=== PATIENT | female | born 1980 | race Caucasian/White ===

== ENCOUNTER 2018-02-09 13:17 | Emergency (ER) | payer OTHER, SELFPAY ==
[2018-02-09 13:22] VITALS: BP 115/78; PULSE 94; RESP 16; TEMP 36.9; O2SAT 98; BMI 27.4
--- NOTE | 2018-02-09 14:43 | ED.HA ---
HPI - Headache <[facility] - Last Filed: 02/09/18 16:52> General Chief Complaint: Headache Stated Complaint: 6 days migrane Time Seen by Provider: 02/09/18 14:45 Source: patient and family Mode of arrival: ambulatory Limitations: no limitations History of Present Illness HPI Narrative: Patient presents with chief complaint of migraine. She states this is been going on for 6 days. She has tried Imitrex, narcotics, and other medications at home. She complaints of phonophobia as well as photophobia. She denies any fevers a complains of nausea and vomiting. She denies diarrhea. She denies abdominal pain, shortness of breath, chest pain. She had states her vision is normal. She denies a thunderclap sensation. She states this is not the worst headache of her life. Related Data Home Medications Medication Instructions Recorded Confirmed No Known Home Medications 02/09/18 02/09/18 Allergies Allergy/AdvReac Type Severity Reaction Status Date / Time banana [BANANA] Allergy Severe HIVES AND Verified 02/09/18 15:18 SWOLLEN THROAT latex [LATEX] Allergy Unknown Verified 02/09/18 15:18 Sulfa (Sulfonamide Allergy Unknown Verified 02/09/18 15:18 Antibiotics) [SULFA (SULFONAMIDE ANTIBIOTICS)] Review of Systems [facility] Last Filed: 02/09/18 16:52> Review of Systems GENERAL: Denies chills, fatigue, malaise, fever, sweats. HEENT: Denies sinus pain, ear pain, sore throat, difficulty swallowing, dizziness. RESPIRATORY: Denies dyspnea, cough, wheezing, hemoptysis, sputum. CARDIOVASCULAR: Denies chest pain, palpitations, orthopnea, edema, GASTROINTESTINAL: Denies nausea, vomiting, abdominal pain, diarrhea, constipation, melena. : Denies dysuria, frequency, incontinence, hematuria, urinary retention. MUSCULOSKELETAL: denies weakness, joint pain, or bony pain SKIN: Denies rash, skin lesions, or other NEUROLOGIC: See HPI PSYCHIATRIC: No concerning psychosocial issues. 12 point review of systems is negative except for those stated above Exam <[facility] - Last Filed: 02/09/18 16:52> Narrative Exam Narrative: GENERAL: This is a well-nourished, well-developed patient, lying on stretcher in a dark room. HEAD: Atraumatic. Normocephalic. No temporal or scalp tenderness. EYES: Pupils equal round and reactive. Extraocular motions intact. No scleral icterus. No injection or drainage. No nystagmus noted. ENT: Nose without bleeding, purulent drainage or septal hematoma. Throat without erythema, tonsillar hypertrophy or exudate. Uvula midline. Airway patent. NECK: Trachea midline. No JVD or lymphadenopathy. Supple, nontender, no meningeal signs. CARDIOVASCULAR: Regular rate and rhythm without murmurs, gallops, or rubs. RESPIRATORY: Clear to auscultation. Breath sounds equal bilaterally. No wheezes, rales, or rhonchi. GASTROINTESTINAL: Abdomen soft, non-tender, nondistended. No hepato-splenomegaly, or palpable masses. No guarding. EXTREMITIES: No clubbing, cyanosis, or edema. No joint tenderness, effusion, or edema noted. BACK: Nontender without deformity or crepitance. No flank tenderness. NEURO: AOx3. Using upper and lower extremities equally bilaterally. Strength is equal bilateral upper and lower extremities. Radialis and Achilles reflexes intact bilaterally. Clear speech. SKIN: No rash or erythema. Initial Vital Signs Initial Vital Signs: Vital Signs Temperature 98.5 F 02/09/18 13:22 Pulse Rate 94 H 02/09/18 13:22 Respiratory Rate 16 02/09/18 13:22 Blood Pressure 115/78 02/09/18 13:22 Pulse Oximetry 98 02/09/18 13:22 <Red Thakkar DO - Last Filed: 02/09/18 19:50> Initial Vital Signs Initial Vital Signs: Vital Signs Temperature 98.5 F 02/09/18 13:22 Pulse Rate 94 H 02/09/18 13:22 Respiratory Rate 16 02/09/18 13:22 Blood Pressure 115/78 02/09/18 13:22 Pulse Oximetry 98 02/09/18 13:22 Course <IRVIN Dee - Last Filed: 02/09/18 16:52> Orders Ordered: Discontinued Medications Diphenhydramine HCl (Benadryl) 50 mg IV NOW ONE Stop: 02/09/18 14:55 Last Admin: 02/09/18 15:18 Dose: 50 mg Sodium Chloride (Normal Saline 0.9%) 1,000 mls @ 1,000 mls/hr IV BOLUS ONE Stop: 02/09/18 15:53 Last Infusion: 02/09/18 16:37 Dose: 0 mls/hr Admin: 02/09/18 15:18 Dose: 1,000 mls/hr Ketorolac Tromethamine (Toradol) 30 mg IV NOW ONE Stop: 02/09/18 14:55 Last Admin: 02/09/18 15:19 Dose: 30 mg Metoclopramide HCl (Reglan) 10 mg IV NOW ONE Stop: 02/09/18 14:55 Last Admin: 02/09/18 15:18 Dose: 10 mg Reevaluation(s) Reevaluation #1: Patient states that her pain is gone. Requesting to go home. Time: 16:00 Vital Signs - 8 hr 02/09/18 13:22 02/09/18 15:25 02/09/18 16:30 Temperature 98.5 F Pulse Rate 94 H 83 85 Respiratory Rate 16 16 18 Blood Pressure 115/78 Blood Pressure [Left Arm] 113/75 100/73 Pulse Oximetry 98 98 98 <Red Thakkar, - Last Filed: 02/09/18 19:50> Orders Ordered: Discontinued Medications Diphenhydramine HCl (Benadryl) 50 mg IV NOW ONE Stop: 02/09/18 14:55 Last Admin: 02/09/18 15:18 Dose: 50 mg Sodium Chloride (Normal Saline 0.9%) 1,000 mls @ 1,000 mls/hr IV BOLUS ONE Stop: 02/09/18 15:53 Last Infusion: 02/09/18 16:37 Dose: 0 mls/hr Admin: 02/09/18 15:18 Dose: 1,000 mls/hr Ketorolac Tromethamine (Toradol) 30 mg IV NOW ONE Stop: 02/09/18 14:55 Last Admin: 02/09/18 15:19 Dose: 30 mg Metoclopramide HCl (Reglan) 10 mg IV NOW ONE Stop: 02/09/18 14:55 Last Admin: 02/09/18 15:18 Dose: 10 mg Vital Signs - 8 hr 02/09/18 13:22 02/09/18 15:25 02/09/18 16:30 Temperature 98.5 F Pulse Rate 94 H 83 85 Respiratory Rate 16 16 18 Blood Pressure 115/78 Blood Pressure [Left Arm] 113/75 100/73 Pulse Oximetry 98 98 98 MDM - Headache <Lisa CowartCATHLEEN- - Last Filed: 02/09/18 16:52> Differential Diagnosis Differential diagnosis: Likely migraine, tension headache and headache MDM Narrative Medical decision making narrative: Patient presents with chief complaint of headache. She states this is consistent with her previous migraines. She denies neurological changes. She did not have a thunderclap sensation her vital signs are within normal limits. Thus we discussed a CT but elected to not do one at this point time. Patient was treated with headache cocktail emergency department great success. Patient had no questions or concerns upon discharge. I discussed going home and resting. Discussed return precautions the emergency department including neurological changes, any acute concerns. Discussed follow-up with primary care provider. Discharge Plan Departure Patient Disposition: Home Clinical Impression: Migraine Discharge Date/Time: 02/09/18 16:43 Interventions: ED Discharge Assessment Last Done: 02/09/18 16:42 Instructions: Migraine -- Adult, DI for Migraine Activity Restrictions/Additional Instructions: Please go home and rest. Follow up with primary care provider about Your migraines. come back to the emergency department if needed. Please do not take any NSAIDs for 6-8 hours after your Toradol injection in the emergency department. Prescriptions: No Action No Known Home Medications RF: 0 Referrals: Stefano Davis MD [Primary Care Provider] - Stand Alone Forms: Work/School Restrictions <Red Thakkar DO - Last Filed: 02/09/18 19:50> Cosign ED Attending Berthaature Attestation: I was immediately available in the department for consultation. Documentation has been reviewed. I agree with assessment and plan.
[2018-02-09] MEDS: METOCLOPRAMIDE 10 MG/2 ML INJ IV (15:18)
[2018-02-09] MEDS: SODIUM CHLORIDE 0.9% 1,000 ML 1000 ML IV (15:18)
[2018-02-09] MEDS: diphenhydrAMINE 50 MG/ML VIAL IV (15:18)
[2018-02-09] MEDS: KETOROLAC 60 MG/2 ML VIAL 30 MG IV (15:19)
[2018-02-09 15:25] VITALS: BP 113/75; PULSE 83; RESP 16; O2SAT 98
[2018-02-09 16:30] VITALS: BP 100/73; PULSE 85; RESP 18; O2SAT 98
--- NOTE | 2018-02-09 16:36 | ED_ITS ---
HPI - Headache <[facility] - Last Filed: 02/09/18 16:52> General Chief Complaint: Headache Stated Complaint: 6 days migrane Time Seen by Provider: 02/09/18 14:45 Source: patient and family Mode of arrival: ambulatory Limitations: no limitations History of Present Illness HPI Narrative: Patient presents with chief complaint of migraine. She states this is been going on for 6 days. She has tried Imitrex, narcotics, and other medications at home. She complaints of phonophobia as well as photophobia. She denies any fevers a complains of nausea and vomiting. She denies diarrhea. She denies abdominal pain, shortness of breath, chest pain. She had states her vision is normal. She denies a thunderclap sensation. She states this is not the worst headache of her life. Related Data Home Medications Medication Instructions Recorded Confirmed No Known Home Medications 02/09/18 02/09/18 Allergies Allergy/AdvReac Type Severity Reaction Status Date / Time banana [BANANA] Allergy Severe HIVES AND Verified 02/09/18 15:18 SWOLLEN THROAT latex [LATEX] Allergy Unknown Verified 02/09/18 15:18 Sulfa (Sulfonamide Allergy Unknown Verified 02/09/18 15:18 Antibiotics) [SULFA (SULFONAMIDE ANTIBIOTICS)] [facility] Systems [facility] Last Filed: 02/09/18 16:52> Review of Systems GENERAL: Denies chills, fatigue, malaise, fever, sweats. HEENT: Denies sinus pain, ear pain, sore throat, difficulty swallowing, dizziness. RESPIRATORY: Denies dyspnea, cough, wheezing, hemoptysis, sputum. CARDIOVASCULAR: Denies chest pain, palpitations, orthopnea, edema, GASTROINTESTINAL: Denies nausea, vomiting, abdominal pain, diarrhea, constipation, melena. : Denies dysuria, frequency, incontinence, hematuria, urinary retention. MUSCULOSKELETAL: denies weakness, joint pain, or bony pain SKIN: Denies rash, skin lesions, or other NEUROLOGIC: See HPI PSYCHIATRIC: No concerning psychosocial issues. 12 point review of systems is negative except for those stated above Exam <[facility] Last Filed: 02/09/18 16:52> Narrative Exam Narrative: GENERAL: This is a well-nourished, well-developed patient, lying on stretcher in a dark room. HEAD: Atraumatic. Normocephalic. No temporal or scalp tenderness. EYES: Pupils equal round and reactive. Extraocular motions intact. No scleral icterus. No injection or drainage. No nystagmus noted. ENT: Nose without bleeding, purulent drainage or septal hematoma. Throat without erythema, tonsillar hypertrophy or exudate. Uvula midline. Airway patent. NECK: Trachea midline. No JVD or lymphadenopathy. Supple, nontender, no meningeal signs. CARDIOVASCULAR: Regular rate and rhythm without murmurs, gallops, or rubs. RESPIRATORY: Clear to auscultation. Breath sounds equal bilaterally. No wheezes , rales, or rhonchi. GASTROINTESTINAL: Abdomen soft, non-tender, nondistended. No hepato-splenomegaly , or palpable masses. No guarding. EXTREMITIES: No clubbing, cyanosis, or edema. No joint tenderness, effusion, or edema noted. BACK: Nontender without deformity or crepitance. No flank tenderness. NEURO: AOx3. Using upper and lower extremities equally bilaterally. Strength is equal bilateral upper and lower extremities. Radialis and Achilles reflexes intact bilaterally. Clear speech. SKIN: No rash or erythema. Initial Vital Signs Initial Vital Signs: Vital Signs Temperature 98.5 F 02/09/18 13:22 Pulse Rate 94 H 02/09/18 13:22 Respiratory Rate 16 02/09/18 13:22 Blood Pressure 115/78 02/09/18 13:22 Pulse Oximetry 98 02/09/18 13:22 <Red Thakkar DO - Last Filed: 02/09/18 19:50> Initial Vital Signs Initial Vital Signs: Vital Signs Temperature 98.5 F 02/09/18 13:22 Pulse Rate 94 H 02/09/18 13:22 Respiratory Rate 16 02/09/18 13:22 Blood Pressure 115/78 02/09/18 13:22 Pulse Oximetry 98 02/09/18 13:22 Course <IRVIN Dee - Last Filed: 02/09/18 16:52> Orders Ordered: Discontinued Medications Diphenhydramine HCl (Benadryl) 50 mg IV NOW ONE Stop: 02/09/18 14:55 Last Admin: 02/09/18 15:18 Dose: 50 mg Sodium Chloride (Normal Saline 0.9%) 1,000 mls @ 1,000 mls/hr IV BOLUS ONE Stop: 02/09/18 15:53 Last Infusion: 02/09/18 16:37 Dose: 0 mls/hr Admin: 02/09/18 15:18 Dose: 1,000 mls/hr Ketorolac Tromethamine (Toradol) 30 mg IV NOW ONE Stop: 02/09/18 14:55 Last Admin: 02/09/18 15:19 Dose: 30 mg Metoclopramide HCl (Reglan) 10 mg IV NOW ONE Stop: 02/09/18 14:55 Last Admin: 02/09/18 15:18 Dose: 10 mg Reevaluation(s) Reevaluation #1: Patient states that her pain is gone. Requesting to go home. Time: 16:00 Vital Signs - 8 hr 02/09/18 13:22 02/09/18 15:25 02/09/18 16:30 Temperature 98.5 F Pulse Rate 94 H 83 85 Respiratory Rate 16 16 18 Blood Pressure 115/78 Blood Pressure [Left Arm] 113/75 100/73 Pulse Oximetry 98 98 98 <Red Thakkar, - Last Filed: 02/09/18 19:50> Orders Ordered: Discontinued Medications Diphenhydramine HCl (Benadryl) 50 mg IV NOW ONE Stop: 02/09/18 14:55 Last Admin: 02/09/18 15:18 Dose: 50 mg Sodium Chloride (Normal Saline 0.9%) 1,000 mls @ 1,000 mls/hr IV BOLUS ONE Stop: 02/09/18 15:53 Last Infusion: 02/09/18 16:37 Dose: 0 mls/hr Admin: 02/09/18 15:18 Dose: 1,000 mls/hr Ketorolac Tromethamine (Toradol) 30 mg IV NOW ONE Stop: 02/09/18 14:55 Last Admin: 02/09/18 15:19 Dose: 30 mg Metoclopramide HCl (Reglan) 10 mg IV NOW ONE Stop: 02/09/18 14:55 Last Admin: 02/09/18 15:18 Dose: 10 mg Vital Signs - 8 hr 02/09/18 13:22 02/09/18 15:25 02/09/18 16:30 Temperature 98.5 F Pulse Rate 94 H 83 85 Respiratory Rate 16 16 18 Blood Pressure 115/78 Blood Pressure [Left Arm] 113/75 100/73 Pulse Oximetry 98 98 98 MDM - Headache <Lisa CowartCATHLEEN- - Last Filed: 02/09/18 16:52> Differential Diagnosis Differential diagnosis: Likely migraine, tension headache and headache MDM Narrative Medical decision making narrative: Patient presents with chief complaint of headache. She states this is consistent with her previous migraines. She denies neurological changes. She did not have a thunderclap sensation her vital signs are within normal limits. Thus we discussed a CT but elected to not do one at this point time. Patient was treated with headache cocktail emergency department great success. Patient had no questions or concerns upon discharge. I discussed going home and resting. Discussed return precautions the emergency department including neurological changes, any acute concerns. Discussed follow-up with primary care provider. Discharge Plan Departure Patient Disposition: Home Clinical Impression: Migraine Discharge Date/Time: 02/09/18 16:43 Interventions: ED Discharge Assessment Last Done: 02/09/18 16:42 Instructions: Migraine -- Adult, DI for Migraine Activity Restrictions/Additional Instructions: Please go home and rest. Follow up with primary care provider about Your migraines. come back to the emergency department if needed. Please do not take any NSAIDs for 6-8 hours after your Toradol injection in the emergency department. Prescriptions: No Action No Known Home Medications RF: 0 Referrals: Stefano Davis MD [Primary Care Provider] - Stand Alone Forms: Work/School Restrictions <Red Thakkar DO - Last Filed: 02/09/18 19:50> Cosign ED Attending Berthaature Attestation: I was immediately available in the department for consultation. Documentation has been reviewed. I agree with assessment and plan.
== END 2018-02-09 16:43 | disposition home or self-care (01) ==
PROVIDERS: Emergency Provider Nurse Practitioner Family; Family Provider Family Medicine; PCP Family Medicine
DX: G43.909 Migraine, unspecified, not intractable, without status migrainosus (principal)
CPT/HCPCS: 96361; 96374; 96375; 99283; 99284; J1200; J1885; J2765

== ENCOUNTER → 2019-10-08 10:50 | Outpatient (CLI) | payer OTHER, SELFPAY ==
[2019-10-08 12:18] LABS: Vitamin D 25 Hydroxy (D3) 42.4 ng/mL (30.0-100.0)
== END ==
PROVIDERS: Family Provider Family Medicine; PCP Family Medicine; Referring Provider Nurse Practitioner; Visit Provider Nurse Practitioner
DX: R53.83 Other fatigue (principal)
CPT/HCPCS: 36415; 82306

== ENCOUNTER → 2020-01-04 10:57 | Outpatient (CLI) | payer OTHER, SELFPAY ==
[2020-01-04 14:04] LABS: Cholesterol 207 mg/dL (140-199); HDL Cholesterol 68 mg/dL (40-60); LDL Cholesterol Calculated 111 mg/dL (<100); Triglycerides 139 mg/dL (35-150)
== END ==
PROVIDERS: Internal Medicine Cardiovascular Disease; Family Provider Family Medicine; PCP Student in an Organized Health Care Education/Training Program; Referring Provider Internal Medicine Cardiovascular Disease; Visit Provider Internal Medicine Cardiovascular Disease
DX: E78.5 Hyperlipidemia, unspecified (principal)
CPT/HCPCS: 36415; 80061

== ENCOUNTER → 2021-01-05 09:15 | Outpatient (CLI) | payer OTHER, SELFPAY ==
[2021-01-05 11:22] LABS: COVID19 -Nasal RAPID Negative (Negative)
== END ==
PROVIDERS: PCP Student in an Organized Health Care Education/Training Program; Visit Provider Physician Assistant
DX: Z20.822 Contact with and (suspected) exposure to COVID-19 (principal); R51.9 Headache, unspecified; J02.9 Acute pharyngitis, unspecified; R52 Pain, unspecified
CPT/HCPCS: 87635

== ENCOUNTER → 2021-01-23 10:32 | Outpatient (CLI) | payer OTHER, SELFPAY ==
--- NOTE | 2021-01-23 | DI.MG.S_ITS ---
BILATERAL DIGITAL SCREENING MAMMOGRAM 3D/2D WITH CAD: 01/23/2021 CLINICAL: Routine screening. Comparison is made to exams dated: 05/18/2017 ultrasound and 05/18/2017 mammogram - [facility]. The tissue of both breasts is heterogeneously dense. This may lower the sensitivity of mammography. Current study was also evaluated with a Computer Aided Detection (CAD) system. There is an oval high density asymmetry with an indistinct margin in the left breast posterior depth superior region seen on the mediolateral oblique view only. No other significant masses, calcifications, or other findings are seen in either breast. IMPRESSION: INCOMPLETE: NEEDS ADDITIONAL IMAGING EVALUATION The oval high density asymmetry in the left breast is indeterminate. Mediolateral and spot compression views as well as additional views with possible ultrasound are recommended. This exam was interpreted at Station ID: [id number]. NOTE: For mammograms, a report in lay terms will be sent to the patient. Approximately 15% of breast malignancies will not be visualized mammographically. In the management of a palpable breast mass, a negative mammogram must not discourage biopsy of a clinically suspicious lesion. Electronically Signed By: Mckinley jay/rosie:01/25/2021 07:31:46 letter sent: Additional Imaging Needed ACR BI-RADS Category 0: Incomplete 3340F
== END ==
PROVIDERS: PCP Student in an Organized Health Care Education/Training Program; Referring Provider Student in an Organized Health Care Education/Training Program; Visit Provider Student in an Organized Health Care Education/Training Program
DX: Z12.31 Encounter for screening mammogram for malignant neoplasm of breast (principal); N64.89 Other specified disorders of breast
CPT/HCPCS: 77063; 77067

== ENCOUNTER → 2021-03-04 08:35 | Outpatient (CLI) | payer BC, SELFPAY | PROVIDERS: PCP Student in an Organized Health Care Education/Training Program; Referring Provider Student in an Organized Health Care Education/Training Program; Visit Provider Student in an Organized Health Care Education/Training Program | DX: R92.8 Other abnormal and inconclusive findings on diagnostic imaging of breast (principal); Z53.8 Procedure and treatment not carried out for other reasons ==

== ENCOUNTER 2022-09-25 22:11 | Emergency (ER) | payer BC, SELFPAY ==
[2022-09-25 22:21] VITALS: O2SAT 98
[2022-09-25 22:22] VITALS: BP 111/59; PULSE 99; O2SAT 96
[2022-09-25 22:23] VITALS: BP 111/59; PULSE 94; RESP 18; TEMP 36.9; O2SAT 97; BMI 25.9
[2022-09-25 22:30] VITALS: BP 103/60; PULSE 93; O2SAT 97
[2022-09-25 23:00] VITALS: BP 104/66; PULSE 86; O2SAT 97
[2022-09-25 23:30] VITALS: BP 105/63; PULSE 77; O2SAT 97
--- NOTE | 2022-09-25 23:41 | ED_ITS ---
HPI - Headache General Chief Complaint: Headache Stated Complaint: Migraine since Time Seen by Provider: 09/25/22 23:22 Mode of arrival: Ambulatory History of Present Illness HPI Narrative: Patient is a 42-year-old female history of migraine headaches presenting with migraine starting 3 days ago. She took her home medications including Imitrex which has not helped. She is been nauseous and vomiting with significant photosensitivity. This is similar to previous migraines. She denies fever neck pain numbness tingling or weakness. She was requesting a migraine cocktail of Toradol Benadryl and Zofran along with fluids. Seems reasonable. Related Data Home Medications Medication Instructions Recorded Confirmed rizatriptan PO 06/11/18 01/05/21 sumatriptan succinate [Imitrex] PO 06/11/18 01/05/21 Allergies Allergy/AdvReac Type Severity Reaction Status Date / Time banana [BANANA] Allergy Severe HIVES AND Verified 09/25/22 22:39 SWOLLEN THROAT latex [LATEX] Allergy Unknown Verified 09/25/22 22:39 Sulfa (Sulfonamide Allergy Unknown Verified 09/25/22 22:39 Antibiotics) [SULFA (SULFONAMIDE ANTIBIOTICS)] Review of Systems Review of Systems ROS Unobtainable: All systems reviewed & are unremarkable except as noted in HPI and below Patient History Social History Smoking Status: Never smoker Smoking Status: Never smoker alcohol intake frequency: a few times a week Substance Use Type: does not use Exam Initial Vital Signs Initial Vital Signs: Vital Signs Pulse Oximetry 98 09/25/22 22:21 GENERAL: Patient in a dark room cold and position with something over her eyes HEENT: Head atraumatic,EOMI, pupils reactive, face symmetric, moist mucous membranes, no meningeal signs CARDIOVASCULAR: Regular rate and rhythm without murmurs, rubs or gallops. RESPIRATORY: Breath sounds equal bilaterally, no wheezes rales or rhonchi. ABDOMEN: Soft, nontender. Normoactive bowel sounds all 4 quadrants. No guarding or rebound. EXTREMITIES: Normal range of motion, no clubbing or edema. Neurovascularly intact NEUROLOGICAL: Alert and oriented x4. Information Systems Auditor strength equal bilaterally moving both feet SKIN: Warm, dry, no laceration, no petechiae, no rashes or lesions. Course Orders Ordered: Discontinued Medications Dihydroergotamine Mesylate (Dihydroergotamine 1 Mg/Ml Ampul) 1 mg IV NOW ONE Stop: 09/26/22 00:47 Last Admin: 09/26/22 00:56 Dose: 1 mg Documented By: Diphenhydramine HCl (Diphenhydramine 50 Mg/Ml Vial) 25 mg IV NOW ONE Stop: 09/25/22 23:51 Last Admin: 09/25/22 23:59 Dose: 25 mg Documented By: Sodium Chloride (Normal Saline 0.9%) 1,000 mls @ 1,000 mls/hr IV BOLUS ONE Stop: 09/26/22 00:49 Last Infusion: 09/26/22 00:53 Dose: 0 mls/hr Documented By: Admin: 09/25/22 23:59 Dose: 1,000 mls/hr Documented By: Sodium Chloride (Normal Saline 0.9%) 1,000 mls @ 1,000 mls/hr IV BOLUS ONE Stop: 09/26/22 00:57 Last Infusion: 09/26/22 03:08 Dose: 0 mls/hr Documented By: Admin: 09/26/22 00:56 Dose: 1,000 mls/hr Documented By: Acetaminophen (Ofirmev) 1,000 mg in 100 mls @ 400 mls/hr IV NOW ONE Stop: 09/26/22 01:01 Last Infusion: 09/26/22 01:23 Dose: 0 mls/hr Documented By: Admin: 09/26/22 00:56 Dose: 400 mls/hr Documented By: Ketorolac Tromethamine (Ketorolac 30 Mg/Ml Vial) 15 mg IV NOW ONE Stop: 09/25/22 23:51 Last Admin: 09/25/22 23:59 Dose: 15 mg Documented By: Ondansetron HCl (Ondansetron 4 Mg/2 Ml Inj) 4 mg IV NOW ONE Stop: 09/25/22 23:51 Last Admin: 09/25/22 23:59 Dose: 4 mg Documented By: Ondansetron HCl (Ondansetron 4 Mg/2 Ml Inj) 4 mg IV NOW ONE Stop: 09/26/22 01:15 Last Admin: 09/26/22 01:17 Dose: 4 mg Documented By: Vital Signs Vital signs: Vital Signs - 8 hr 09/25/22 22:23 09/25/22 22:21 09/25/22 22:22 Temperature 98.5 F Pulse Rate 94 H Respiratory Rate 18 Blood Pressure 111/59 L 111/59 L Pulse Oximetry 97 98 Oxygen Delivery Method Room Air 09/25/22 22:22 09/25/22 22:30 09/25/22 22:30 Temperature Pulse Rate 99 H 93 H Respiratory Rate Blood Pressure 103/60 Pulse Oximetry 96 97 Oxygen Delivery Method 09/25/22 23:00 09/25/22 23:00 09/25/22 23:30 Temperature Pulse Rate 86 Respiratory Rate Blood Pressure 104/66 105/63 Pulse Oximetry 97 Oxygen Delivery Method 09/25/22 23:30 09/26/22 00:00 09/26/22 00:00 Temperature Pulse Rate 77 96 H Respiratory Rate Blood Pressure 101/64 Pulse Oximetry 97 98 Oxygen Delivery Method 09/26/22 00:30 09/26/22 00:30 09/26/22 01:00 Temperature Pulse Rate 86 92 H Respiratory Rate Blood Pressure 104/72 Pulse Oximetry 96 98 Oxygen Delivery Method 09/26/22 01:01 09/26/22 01:01 09/26/22 01:30 Temperature Pulse Rate 98 H Respiratory Rate Blood Pressure 123/79 106/66 Pulse Oximetry 98 Oxygen Delivery Method 09/26/22 01:30 09/26/22 02:00 09/26/22 02:00 Temperature Pulse Rate 83 92 H Respiratory Rate Blood Pressure 109/73 Pulse Oximetry 96 97 Oxygen Delivery Method 09/26/22 02:30 09/26/22 02:30 09/26/22 03:00 Temperature Pulse Rate 74 Respiratory Rate Blood Pressure 103/62 103/58 L Pulse Oximetry 96 Oxygen Delivery Method 09/26/22 03:00 Temperature Pulse Rate 75 Respiratory Rate Blood Pressure Pulse Oximetry 96 Oxygen Delivery Method MDM - Headache MDM Narrative Medical decision making narrative: Patient has a history of migraine headaches this is presenting with migraine. This is similar to previous migraines however not responding to Triptan medication. She is given IV fluids Toradol Benadryl and Zofran which do seem to help but she is still having headache. She is given IV Tylenol in D[facility]. Afterwards she is able to sit up overall feeling better she is given a 2 L of fluid and symptoms have improved enough for her to go. She is no focal deficits she is afebrile and does not have meningeal signs. Symptoms are consistent with a migraine headache improved with migraine cocktail and medication at this time there is no need for imaging or blood work. Discharge Plan Departure Patient Disposition: Home Clinical Impression: Migraine Instructions: DI for Migraine Activity Restrictions/Additional Instructions: *You have been diagnosed with migraine headache *What to do: At this time I hope you finally get some rest and sleep at. Stay hydrated. *Continue to take medications as directed *Follow up with your primary care provider in 2-3 days or call [phone] *Return to ER if you should have persistent or worsening headache persistent vomiting fever or any new, worsening or concerning symptoms Prescriptions: No Action sumatriptan succinate PO rizatriptan PO Referrals: Guru Herrera MD [Primary Care Provider] - Stand Alone Forms: Patient Portal/API
[2022-09-25] MEDS: KETOROLAC 30 MG/ML VIAL 15 MG IV (23:59)
[2022-09-25] MEDS: ONDANSETRON 4 MG/2 ML INJ IV (23:59)
[2022-09-25] MEDS: SODIUM CHLORIDE 0.9% 1,000 ML 1000 ML IV (23:59)
[2022-09-25] MEDS: diphenhydrAMINE 50 MG/ML VIAL 25 MG IV (23:59)
[2022-09-26] VITALS (8 sets, daily range): BP systolic 101–123; BP diastolic 58–79; PULSE 74–98; O2SAT 96–98
[2022-09-26] MEDS: SODIUM CHLORIDE 0.9% 1,000 ML 1000 ML IV (00:56)
[2022-09-26] MEDS: DIHYDROERGOTAMINE 1 MG/ML AMPUL IV (00:56)
[2022-09-26] MEDS: ACETAMINOPHEN IV 1,000 MG/100 ML VIAL 400 MG IV (00:56)
[2022-09-26] MEDS: ONDANSETRON 4 MG/2 ML INJ IV (01:17)
== END 2022-09-26 03:10 | disposition home or self-care (01) ==
PROVIDERS: Emergency Provider Emergency Medicine; PCP Family Medicine
DX: G43.909 Migraine, unspecified, not intractable, without status migrainosus (principal)
CPT/HCPCS: 36415; 96365; 96375; 96376; 99284; J0131; J1110; J1200; J1885; J2405